=== PATIENT | female | born 1985 | race Two or more races ===

== ENCOUNTER 2018-11-18 03:07 | Emergency (ER) | payer OTHER, MEDICAID ==
[~2018-11-18] VITALS: Ht 165.1 cm; Wt 63.5 kg
--- NOTE | 2018-11-18 03:13 | NUR ---
PT BIBLAPD FROM HOME C/O SI WITH PLAN TO HANG SELF. DENIES HI, AUDITORY HALLUCINATIONS. PT STATES SHE HAS NOT BEEN TAKING PSYCHOTIC MEDICATIONS X4 MOS. PT AAOX4. RESPIRATIONS EVEN AND UNLABORED. SKIN INTACT. NO ACUTE DISTRESS NOTED AT THIS TIME.
--- NOTE | 2018-11-18 03:28 | NUR ---
TECHNICAL MAINTENANCE TECHNICIAN AT BEDSIDE FOR BLOOD DRAW
[2018-11-18 03:41] LABS: BASOPHILS % (AUTO) 0.8 % (0.0-2.0); HEMATOCRIT 37 % (33-45); HEMOGLOBIN 12.1 g/dL (11.5-14.8); LYMPHOCYTES # (AUTO) 3.2 /CMM (0.8-4.8); LYMPHOCYTES % (AUTO) 60.5 % (20.0-44.0); MEAN CORPUSCULAR HGB CONC 33 g/dl (31.0-36.0); MEAN CORPUSCULAR VOLUME 86 fL (82-100); MONOCYTES # (AUTO) 0.3 /CMM (0.1-1.30); MONOCYTES % (AUTO) 5.7 % (2.0-12.0); NEUTROPHILS # (AUTO) 1.7 /CMM (1.8-8.9); PLATELET COUNT (AUTO) 374 /CMM (150-450); RED BLOOD CELL COUNT(AUTO) 4.25 MIL/uL (4.0-5.2); WHITE BLOOD COUNT (AUTO) 5.3 K/uL (4.3-11.0)
[2018-11-18 03:44] LABS: APPEARANCE,URINE CLEAR (CLEAR); BILIRUBIN,URINE NEGATIVE (NEGATIVE); BLOOD, URINE 3+ Ery/uL (NEGATIVE); COLOR,URINE YELLOW (YELLOW); KETONES,URINE NEGATIVE (NEGATIVE); LEUKOCYTE ESTERASE ,URINE NEGATIVE (NEGATIVE); NITRITE, URINE NEGATIVE (NEGATIVE); PROTEIN,URINE NEGATIVE (NEGATIVE); UGLUCOSE NEGATIVE (NEGATIVE); UROBILINOGEN,URINE 0.2 EU/dL (0.2)
[2018-11-18 03:47] LABS: BACTERIA,URINE None seen /HPF (None Seen); SQUAMOUS EPITHELIAL CELL,UR Few /HPF (None Seen); WBC,URINE 0-2 /HPF (0-3)
[2018-11-18 03:56] LABS: BILIRUBIN,TOTAL 0.1 mg/dL (0.2-1.0); CALCIUM, SERUM 9.1 mg/dL (8.5-10.1); CREATININE 0.7 mg/dL (0.6-1.3); POTASSIUM 3.5 mmol/L (3.5-5.1); TOTAL PROTEIN, SERUM 8.5 g/dL (6.4-8.2)
[2018-11-18 03:57] LABS: SALICYLATE 1.4 mg/dL (2.8-20.0)
--- NOTE | 2018-11-18 06:20 | NUR ---
PT C/O HEADACHE. MD AWARE.
[2018-11-18] MEDS ORDERED: ACETAMINOPHEN 650 MG/20.3 ML UDC PO ONE (06:30)
[2018-11-18] MEDS ORDERED: ACETAMINOPHEN 325 MG TABLET ONE ×2 (06:30→13:55)
--- NOTE | 2018-11-18 07:28 | NUR ---
GAVE REPORT TO TONY LITTLEJOHN FOR [facility]
[2018-11-18] MEDS ORDERED: oxyCODONE/APAP (5/325 MG) 1 UDTAB TABLET PO ONE (07:30)
[2018-11-18] MEDS ORDERED: oxyCODONE/APAP (5/325 MG) 1 UDTAB TABLET ONE (07:35)
--- NOTE | 2018-11-18 07:40 | NUR ---
RECEIVED REPORT FROM ANNETTA RICKETTS FOR [facility]. AWAITING ADMINISTRATIVE ASSOCIATE FOR PSYCH EVAL.
--- NOTE | 2018-11-18 09:42 | NUR ---
STEFANY GRIDER AT BEDSIDE FOR EVAL.
[2018-11-18] MEDS ORDERED: ALBUTEROL FS 2.5 MG/3 ML VIAL.NEB CONTNEB ONE (10:30)
[2018-11-18] MEDS ORDERED: ALBUTEROL FS 2.5 MG/3 ML VIAL.NEB ONE (10:40)
--- NOTE | 2018-11-18 10:42 | NUR ---
REPORT GIVEN TO ANNETTA CARTER.
--- NOTE | 2018-11-18 10:44 | NUR ---
RT AT BEDSIDE FOR BREATHING TREAMENT.
--- NOTE | 2018-11-18 12:04 | NUR ---
CALLED [facility] INTAKE, AMBULANCE BORDER PATROL AGENT ETA 1300H
[2018-11-18 13:42] VITALS: BP 144/94
--- NOTE | 2018-11-18 13:42 | NUR ---
CALLED [facility] FOR LUNCH TRAY.
--- NOTE | 2018-11-18 13:48 | NUR ---
REPORT GIVEN TO EMS FOR TRANSFER TO [facility].
[2018-11-18] MEDS ORDERED: ACETAMINOPHEN 325 MG TABLET PO ONE (14:00)
== END 2018-11-18 14:00 ==
LOC: ER 03:09
DX: R45.851 Suicidal ideations (principal); F10.129 Alcohol abuse with intoxication, unspecified; J45.909 Unspecified asthma, uncomplicated; F43.10 Post-traumatic stress disorder, unspecified; F41.9 Anxiety disorder, unspecified; F60.0 Paranoid personality disorder; Z98.890 Other specified postprocedural states; Y90.6 Blood alcohol level of 120-199 mg/100 ml
CPT/HCPCS: 36415; 80048; 80076; 80305; 80307 ×3; 80329; 81001; 84703; 85025; 94640 ×2; 99285; G0480; 81000-TC